=== PATIENT | female | born 1940 | race Two or more races ===

== ENCOUNTER → 2024-10-11 | Outpatient (CLI) | payer MEDICARE, MEDICAID, SELFPAY ==
[2024-10-11 10:11] LABS: Basophils # (Auto) 0.0 Thou/mm3 (0.0-0.2); Basophils % (Auto) 1 % (0-2.5); Eosinophils # (Auto) 0.2 Thou/mm3 (0.0-0.5); Eosinophils % (Auto) 4 % (0-10); Hematocrit 39.2 % (36.0-46.0); Hemoglobin 13.2 g/dL (12.0-16.0); Immature Granulocytes Auto 0.02 Thou/mm3 (0.00-0.00); Lymphocytes # (Auto) 1.5 Thou/mm3 (1.0-4.8); Lymphocytes % (Auto) 30 % (10-50); Mean Corpuscular HGB Conc 33.7 g/dl (31.0-37.0); Mean Corpuscular Hemoglobin 33.7 pg (25.0-35.0); Mean Corpuscular Volume 100 fL (80-100); Monocytes # (Auto) 0.5 Thou/mm3 (0.0-0.8); Monocytes % (Auto) 10 % (0-12); Neutrophils # (Auto) 2.8 Thou/mm3 (1.8-7.7); Neutrophils % (Auto) 56 % (37-80); Nucleated Red Blood Cell # 0.00 Thou/mm3 (0.00-0.00); Nucleated Red Blood Cell % 0 /100 WBC (0); Platelet Count 196 Thou/mm3 (140-440); RDW Standard Deviation 45.1 fL (36.4-46.3); Red Blood Count 3.92 Miln/mm3 (4.00-5.20); White Blood Count 5.1 Thou/mm3 (3.6-11.0)
[2024-10-11 10:19] LABS: Glucose Estimated Average 126 mg/dL (80-131); Hemoglobin A1C 6.0 % Hgb (4.8-6.0)
[2024-10-11 10:31] LABS: Alanine Aminotransferase 16 U/L (10-49); Albumin, Serum 4.3 gm/dL (3.4-4.8); Alkaline Phosphatase 79 U/L (46-116); Anion Gap 9 (7-16); Aspartate Amino Transferase 22 U/L (0-34); BUN/Creatinine Ratio 33 Ratio (12-20); Bilirubin,Direct 0.2 mg/dL (0.0-0.3); Bilirubin,Total 0.7 mg/dL (0.3-1.2); Blood Urea Nitrogen 30 mg/dL (9-23); Calcium 10.7 mg/dL (8.3-10.6); Carbon Dioxide 27.0 mMol/L (20.0-31.0); Cardiac Risk Estimate 3.3 RATIO (3.7-5.6); Chloride 108 mMol/L (98-107); Cholesterol 177 mg/dL (132-200); Creatinine (Component) 0.9 mg/dL (0.6-1.3); Free T4 (Free Thyroxine) 0.83 ng/dL (0.89-1.76); Glucose 98 mg/dL (74-106); HDL Cholesterol 54 mg/dL (40-60); LDL Cholesterol,Calculated 92 mg/dL (0-130); Osmolality,Calculated 293 (275-295); Potassium 4.9 mMol/L (3.4-5.1); Sodium 144 mMol/L (136-145); Thyroid Stimulating Hormone 1.72 uIU/mL (0.55-4.78); Total Protein 6.2 gm/dL (5.7-8.2); Triglycerides 153 mg/dL (30-150); eGFR > 60 See Note
== END | disposition home or self-care (01) ==
LOC: COPL 09:16
PROVIDERS: PCP Internal Medicine; Referring Provider Internal Medicine Cardiovascular Disease; Visit Provider Internal Medicine Cardiovascular Disease
DX: I10 Essential (primary) hypertension (principal); E78.5 Hyperlipidemia, unspecified; E11.9 Type 2 diabetes mellitus without complications
CPT/HCPCS: 36415; 80048; 80061; 80076; 83036; 84439; 84443; 85025

== ENCOUNTER 2025-01-22 07:56 | Emergency (ER) | payer MEDICARE, MEDICAID, SELFPAY ==
[2025-01-22 08:04] VITALS: BP 157/78; PULSE 62; RESP 19; TEMP 36.7; O2SAT 94
--- NOTE | 2025-01-22 08:18 | PD.EDDIZZY ---
ED Dizzyness RME/HPI General Chief Complaint: Weakness Stated Complaint: WEAKNESS Time Seen by Provider: 01/22/25 08:18 Arrival date/time: 01/22/25 07:56 RME / HPI RME / HPI Narrative: See [facility] for Dr. Land's HPI Documentation. Related Data Home Medications ?Medication ?Instructions ?Recorded ?Confirmed MULTIVITS W-FE,OTHER MIN/LUT 1 100 ml PO QDAY ##0 09/28/13 12/09/21 (CENTRUM SILVER ULTRA WOMEN TAB) Tolterodine Tartrate (Tolterodine 4 mg PO QDAY ##0 09/28/13 12/09/21 Tartrate ER) benazepril 40 mg tablet (Lotensin) 40 mg PO QDAY #0 tabs 09/28/13 12/09/21 amlodipine 5 mg tablet 5 mg PO QDAY 12/05/21 12/09/21 betamethasone 0.6 mg/5 mL oral 5 mg PO BID 12/05/21 12/05/21 solution famotidine 40 mg tablet 40 mg PO QDAY 12/05/21 12/09/21 Previous Rx's ?Medication ?Instructions ?Recorded ibuprofen 600 mg tablet 600 mg PO TID PRN pain #30 tabs 05/29/22 valacyclovir 1 gram tablet 1,000 mg PO BID #21 tabs 05/29/22 (Valtrex) cefdinir 300 mg capsule 300 mg PO BID #14 caps 01/22/25 meclizine 25 mg tablet 25 mg PO BID PRN dizziness #20 tabs 01/22/25 ondansetron 4 mg disintegrating 4 mg PO TID PRN nausea and 01/22/25 tablet vomiting 30 days #10 tabs scopolamine base 1 mg over 3 days 1 mg topical .q72 hours PRN 01/22/25 transdermal patch (Transderm-Scop) dizziness or vertigo #4 ea Allergies Allergy/AdvReac Type Severity Reaction Status Date / Time sulfa drugs Allergy Uncoded 01/22/25 08:31 Review of Systems Review of Systems Systems Reviewed: All systems reviewed, normal except as documented Past Medical History Past Medical History CARDIAC: Positive Cardiac Disorders and Hypertension MUSCULOSKELETAL: Positive Musculoskeletal Disorders, Arthritis and Osteoporosis ENT: Positive Cataracts ENDOCRINE: Positive Endocrine Disorders and Diabetes Mellitus Type 2 (borderline no meds) Surgical History SURGICAL: Positive Cardiac Surgery, Pacemaker (1998) and Hysterectomy Social History SMOKING STATUS: Never smoker SUBSTANCE USE: does not use ALCOHOL: Never ED Exam Narrative Physical exam: See [facility] for Dr. Land's HPI Documentation. Course Quality Measures none Orders Category Date Time Status EKG (ED ONLY) *Do not use* NOW Care 01/22/25 08:20 Completed Saline [Insert IV] NOW Care 01/22/25 08:19 Completed Straight [In and Out Catheter] X1 Care 01/22/25 08:[address] head/brain wo con Stat Exams 01/22/25 08:20 Completed EKG (ED Only) Stat Exams 01/22/25 08:20 Draft XR chest 1V portable Stat Exams 01/22/25 08:20 Completed BNP [B-Type Natriuretic Peptide] Stat Lab 01/22/25 09:30 Completed Bilirubin,Direct Stat Lab 01/22/25 09:30 Completed CBC Stat Lab 01/22/25 09:30 Completed CMP [Comprehensive Metabolic Panel] Stat Lab 01/22/25 09:30 Completed Magnesium Stat Lab 01/22/25 09:30 Completed TSH [Thyroid Stimulating Hormone] Stat Lab 01/22/25 09:30 Completed Troponin I Stat Lab 01/22/25 09:30 Completed UA, C/S IF [Urinalysis, C/S if Indicated] Stat Lab 01/22/25 08:44 Completed Urine Culture Stat Lab 01/22/25 08:44 Received Meclizine HCl [Antivert] Med 01/22/25 08:19 Discontinued 25 mg PO X1 ONE Ondansetron Inj [Zofran Inj] Med 01/22/25 08:19 Discontinued 4 mg IVP X1 ONE Scopolamine [Transderm-Scop Patch] Med 01/22/25 08:19 Discontinued 1 mg TOP X1 ONE Sodium Chloride 0.9% 1000 ml [Ns] 1,000 ml Med 01/22/25 08:19 Discontinued IV 999 mls/hr cefTRIAXone/D5w 1gm IV premix [Rocephin/D5w 1gm IV Med 01/22/25 09:50 Discontinued premix] 1 gm in 50 ml IV X1 Vital Signs Vital signs: Vital Signs Temperature 98.1 F 01/22/25 08:04 Pulse Rate 62 01/22/25 08:04 Respiratory Rate 19 01/22/25 08:04 Blood Pressure 157/78 H 01/22/25 08:04 Pulse Oximetry (%) 94 L 01/22/25 08:04 Oxygen Delivery Method Room Air 01/22/25 08:04 Dizziness MDM Narrative MDM Narrative:: This section includes all my notes and documentations, including HPI, PE, and ED course. Rolando Land MD HPI: 84-year-old female with about 48-hour history of severe dizziness and vomiting. She describes spinning sensation. No speech or visual impairment. No loss of power in the arms or legs. No numbness or tingling. No chest pain. No other complaints. ROS: All negative except as documented in HPI. Physical Exam: General: Alert and oriented. Appearance of severe malaise noted. Eyes: Conjunctivae and lids clear. EOMI. PERRL. ENT: No nasal congestion. Pharynx normal. Tympanic membrane normal bilaterally. Neck: Supple. No carotid bruit. No JVD. Heart: RRR. Lungs: No respiratory distress. Good air movement. No rhonchi, wheezing, rales. Abdomen: Soft and nontender. Normal bowel sounds. No distension. No rebound or guarding. Back: No CVA tenderness. Legs: No clubbing, cyanosis, edema. Skin: Warm and dry. Neuro: Alert and oriented X 3. Cranial Nerves II-XII grossly intact. No peripheral motor deficits. I reviewed EMS notes. I reviewed all diagnostic test results: My interpretation of the EKG: Paced rhythm (61 bpm). My interpretation of the chest x-ray is NAD. My review of the head CT report is NAD. Blood tests unremarkable. UA showed leukocyte esterase, 47 WBC, and 2+ bacteria. At this point, diagnoses include: Vertigo UTI Treatment here included: IVF Ceftriaxone 1 g IV Meclizine 25 mg PO Ondansetron 4 mg IV Scopolamine patch Significant improvement noted. Recommended a trial of outpatient treatment. Based on my best medical judgment, made decision no further evaluation or treatment indicated at this time. Patient and daughter understands and agrees to the discharge instructions customized and printed, see below. Discharge instructions from Dr. Land: ? After extensive evaluation, there is no life-threatening condition.? Such as stroke or brain tumor or heart attack. -- Your severe symptoms are due to vertigo.? This is an inner ear problem that makes you feel like you are drunk or seasick.? See attached handout. -- Use scopolamine patch and/or meclizine for your severe symptoms. -- Take cefdinir for urine infection. -- And Zofran for nausea/vomiting.? And increase oral fluid to prevent dehydration.? Maintain clear urine.? If dark or yellow, increase oral fluid. -- And do everything very slowly.? Including moving your head.? And when you sit up or stand up, wait a minute before you progress.? -- See your private doctor on 01/24/2025 for recheck. Ask to review all test results and official radiology reports, to make sure you receive all necessary follow-ups and monitoring, including final urine culture results from today. -- Seek immediate medical care with worsening or with any concerns. Instrucciones de farhana del Dr. Land: ? Tras refugio evaluaci?n exhaustiva, no se detect? ninguna afecci?n que ponga en peligro la marcela. Por ejemplo, accidente cerebrovascular, tumor cerebral o infarto de miocardio. ? Tammy s?ntomas graves se deben a v?rtigo. Se trata de un problema del o?do interno que le hace sentir fabiola si estuviera ebrio o mareado. Consulte el folleto adjunto. ? Use parches de escopolamina y/o meclizina para aliviar tammy s?ntomas graves. ? [place] cefdinir para la infecci?n urinaria. ? Y Zofran para las n?useas y los v?mitos. Aumente la ingesta de l?quidos para prevenir la deshidrataci?n. Mantenga la orina mona. Si est? oscura o amarilla, aumente la ingesta de l?quidos. ? Realice todas las actividades muy lentamente. Incluso lumber mover la deepak. Al sentarse o levantarse, espere un minuto antes de continuar. ? Consulte con [place] m?dico de cabecera el 2024 para refugio revisi?n. Solicite revisar todos los resultados de las pruebas e informes radiol?gicos oficiales para asegurarse de recibir todo el seguimiento y la monitorizaci?n necesarios, incluidos los resultados finales del cultivo de orina de hoy. ? Busque atenci?n m?dica inmediata si los s?ntomas empeoran o si tiene alguna inquietud. Rolando Land MD Patient data External records reviewed:: [facility] previous records and EMS form Clinical information provided by:: patient and EMS Social determinants that could affect healthcare access:: none Patient has the following chronic illnesses:: Hypertension, DM 2, arthritis, osteoporosis, pacemaker (1998),and a hysterectomy. How is presenting disease/condition affected by chronic disease/condition?: exacerbated by Evaluation data The following diagnostics were reviewed and interpreted by me:: lab results, radiology exam(s) and EKG tracing(s) (My interpretation of the EKG: Paced rhythm (61 bpm). Rolando Land MD) Lab and/or radiology exams considered but not ordered:: none Interpretation Summary: I reviewed all diagnostic test results: My interpretation of the EKG: Paced rhythm (61 bpm). My interpretation of the chest x-ray is NAD. My review of the head CT report is NAD. Blood tests unremarkable. UA showed leukocyte esterase, 47 WBC, and 2+ bacteria. Medications / Prescriptions Medications or Prescriptions considered but not ordered:: none Medication administrations:: Medication Administration History Discontinued Medications Sodium Chloride (Ns) 1,000 mls @ 999 mls/hr IV .Q1H1M ONE Stop: 01/22/25 09:19 Last Infusion: 01/22/25 10:34 Dose: Infused Documented By: Admin: 01/22/25 09:33 Dose: 999 mls/hr Documented By: LF Ceftriaxone Sodium/Dextrose (Rocephin/D5w 1gm Iv Premix) 1 gm in 50 mls @ 100 mls/hr IV X1 ONE Stop: 01/22/25 10:19 Last Admin: 01/22/25 10:50 Dose: 100 mls/hr Documented By: ED Meclizine HCl (Meclizine Hcl 25 Mg Tablet) 25 mg PO X1 ONE Stop: 01/22/25 08:20 Last Admin: 01/22/25 09:35 Dose: 25 mg Documented By: LF Ondansetron HCl (Ondansetron Inj 2 Mg/Ml Inj 2 Ml) 4 mg IVP X1 ONE; Protocol Stop: 01/22/25 08:20 Last Admin: 01/22/25 09:33 Dose: 4 mg Documented By: LF Scopolamine (Scopolamine 1 Mg Tdsy) 1 mg TOP X1 ONE Stop: 01/22/25 08:20 Last Admin: 01/22/25 09:34 Dose: 1 mg Documented By: ALEX Treatment here included: IVF Ceftriaxone 1 g IV Meclizine 25 mg PO Ondansetron 4 mg IV Scopolamine patch Consultations Consultation(s) initiated? (list below): No Diagnosis Dizziness Differential Diagnosis: adverse reaction to drug, benign paroxysmal positional vertigo, orthostatic hypotension, vertebral basilar insufficiency, cerebrovascular accident, acute vestibular neuronitis, transient cerebral ischemia and other Most likely diagnosis given after review of the tests above:: Vertigo UTI Admission Indicated Admission indicated?: not indicated Explain why admission is indicated or not indicated:: With significant improvement and no condition needing emergent intervention, there was no indication for admission. Admission Request Was there a request for admission?: No Disposition Plan Disposition Plan: Discharge Discharge Attestation Discharge Attestation: The patient and all family members were given an opportunity to ask questions and understood the discharge instructions. Discharge instructions specifically effects, indications for sooner follow up or return to the emergency department, and the expected course of current diagnosis. Patient condition: Stable Discharge Plan Plan Patient Disposition: HOME (Self Care) Prescriptions/Referrals Prescriptions/Med Rec: New meclizine 25 mg tablet 25 mg PO BID PRN (Reason: dizziness) Qty: 20 0RF scopolamine base [Transderm-Scop] 1 mg over 3 days patch 3 day 1 mg topical .q72 hours PRN (Reason: dizziness or vertigo) Qty: 4 0RF ondansetron 4 mg tablet,disintegrating 4 mg PO TID PRN (Reason: nausea and vomiting) 30 Days Qty: 10 0RF cefdinir 300 mg capsule 300 mg PO BID Qty: 14 0RF No Action benazepril [Lotensin] 40 MG tablet 40 mg PO QDAY Qty: 0 MULTIVITS W-FE,OTHER MIN/LUT (CENTRUM SILVER ULTRA WOMEN TAB) 1 EACH tablet 1 100 ml PO QDAY Qty: 0 Tolterodine Tartrate (Tolterodine Tartrate ER) 4 MG CAP.ER.24H 4 mg PO QDAY Qty: 0 valacyclovir [Valtrex] 1 gram tablet 1,000 mg PO BID Qty: 21 0RF ibuprofen 600 mg tablet 600 mg PO TID PRN (Reason: pain) Qty: 30 0RF betamethasone 0.6 mg/5 mL Solution 5 mg PO BID famotidine 40 mg Tablet 40 mg PO QDAY amlodipine 5 mg Tablet 5 mg PO QDAY Referrals: Jerome Mendoza MD [Primary Care Provider, Internal Medicine] - In 1 week Problem List Clinical Impression: Vertigo, UTI (urinary tract infection) Patient/Caregiver Discharge Instructions Discharge Activity: activity as tolerated Education Materials: ED CYSTITIS Female Adult, ED Vertigo, Unspecified Additional Instructions: Discharge instructions from Dr. Land: ? After extensive evaluation, there is no life-threatening condition.? Such as stroke or brain tumor or heart attack. -- Your severe symptoms are due to vertigo.? This is an inner ear problem that makes you feel like you are drunk or seasick.? See attached handout. -- Use scopolamine patch and/or meclizine for your severe symptoms. -- Take cefdinir for urine infection. -- And Zofran for nausea/vomiting.? And increase oral fluid to prevent dehydration.? Maintain clear urine.? If dark or yellow, increase oral fluid. -- And do everything very slowly.? Including moving your head.? And when you sit up or stand up, wait a minute before you progress.? -- See your private doctor on 01/24/2025 for recheck. Ask to review all test results and official radiology reports, to make sure you receive all necessary follow-ups and monitoring, including final urine culture results from today. -- Seek immediate medical care with worsening or with any concerns. Instrucciones de farhana del Dr. Land: ? Tras refugio evaluaci?n exhaustiva, no se detect? ninguna afecci?n que ponga en peligro la marcela. Por ejemplo, accidente cerebrovascular, tumor cerebral o infarto de miocardio. ? Tammy s?ntomas graves se deben a v?rtigo. Se trata de un problema del o?do interno que le hace sentir fabiola si estuviera ebrio o mareado. Consulte el folleto adjunto. ? Use parches de escopolamina y/o meclizina para aliviar tammy s?ntomas graves. ? [place] cefdinir para la infecci?n urinaria. ? Y Zofran para las n?useas y los v?mitos. Aumente la ingesta de l?quidos para prevenir la deshidrataci?n. Mantenga la orina mona. Si est? oscura o amarilla, aumente la ingesta de l?quidos. ? Realice todas las actividades muy lentamente. Incluso lumber mover la deepak. Al sentarse o levantarse, espere un minuto antes de continuar. ? Consulte con [place] m?dico de cabecera el diciembre 2024 para refugio revisi?n. Solicite revisar todos los resultados de las pruebas e informes radiol?gicos oficiales para asegurarse de recibir todo el seguimiento y la monitorizaci?n necesarios, incluidos los resultados finales del cultivo de orina de hoy. ? Busque atenci?n m?dica inmediata si los s?ntomas empeoran o si tiene alguna inquietud. Print Language: Thai Stand Alone Forms: Poppy Award Info., Patient Portal Info Letter
[2025-01-22 08:19] VITALS: PULSE 76; RESP 20; O2SAT 98
--- NOTE | 2025-01-22 08:20 | XR_ITS ---
Examination: CT brain head without contrast. 2-D sagittal coronal reconstructions Date and time of exam: January 22, 2025, 0901 hours INDICATIONS: Dizziness weakness beginning 4 days ago CTDI: vol (mGy): 51.8 DLP: (mGycm): 1016 Technique: Multiple CT axial sections of the brain have been obtained, 5 mm slice thickness. Contrast has not been administered. 2-D sagittal, coronal reconstructions have been obtained Low dose protocols were performed. One or more of the following dose reduction techniques were used; automated exposure control, adjustment of the mA and/or KV according to patient size, use of iterative reconstruction technique. Findings: No significant ventricular enlargement. Intra-axial or extra-axial hemorrhage density is not seen. No mass effect or midline shift Basal cisterns are not remarkable. Fourth ventricle is midline. Cranial vault intact. Impression: Negative for acute hemorrhage, mass effect or midline shift Advise clinical correlation and follow-up accordingly
--- NOTE | 2025-01-22 08:20 | EKG_ITS ---
[facility] Test Date: 2025-01-22 Pat Name: DARLIN AUGUSTE Department: Room: - Gender: Female [employer]st: : 1940 Requested By: Rolando Luna Order Number: [id number] Reading MD: Rolando Luna Measurements Intervals [place] Rate: 61 P: 92 MT: 199 QRS: -14 QRSD: 91 T: 29 QT: 377 QTc: 380 Interpretive Statements ELECTRONIC ATRIAL PACEMAKER LOW QRS VOLTAGE IN PRECORDIAL LEADS [QRS DEFLECTION < 1.0 mV IN CHEST LEADS] ABNORMAL RHYTHM ECG Compared to ECG 05/29/2022 08:34:24 No significant changes /store/S0/[id number].pdf
--- NOTE | 2025-01-22 08:20 | XR_ITS ---
EXAMINATION: AP chest single view TECHNIQUE: AP portable upright chest single view Date and time: January 22, 2025, 0822 hours, comparison 10/30/2021 INDICATIONS: Shortness of breath today FINDINGS: No significant cardiac enlargement Atelectasis versus early pneumonia right base Cardiac leads satisfactory position. No pulmonary edema. IMPRESSION: Atelectasis versus early pneumonia right base, clinical correlation advised
[2025-01-22 09:22] LABS: Collection Type, Urine Clean Catch
[2025-01-22] MEDS: ONDANSETRON INJ 2 MG/ML INJ 2 ML 4 MG IVP (09:33)
[2025-01-22] MEDS: SODIUM CHLORIDE 0.9% 1000 ML 1,000 ML 999 ML IV (09:33)
[2025-01-22] MEDS: SCOPOLAMINE 1 MG TDSY TOP (09:34)
[2025-01-22] MEDS: MECLIZINE HCL 25 MG TABLET PO (09:35)
[2025-01-22 09:40] LABS: Basophils # (Auto) 0.0 Thou/mm3 (0.0-0.2); Basophils % (Auto) 0 % (0-2.5); Eosinophils # (Auto) 0.0 Thou/mm3 (0.0-0.5); Eosinophils % (Auto) 1 % (0-10); Hematocrit 40.9 % (36.0-46.0); Hemoglobin 13.7 g/dL (12.0-16.0); Immature Granulocytes Auto 0.02 Thou/mm3 (0.00-0.00); Lymphocytes # (Auto) 1.0 Thou/mm3 (1.0-4.8); Lymphocytes % (Auto) 15 % (10-50); Mean Corpuscular HGB Conc 33.5 g/dl (31.0-37.0); Mean Corpuscular Hemoglobin 33.0 pg (25.0-35.0); Mean Corpuscular Volume 99 fL (80-100); Monocytes # (Auto) 0.4 Thou/mm3 (0.0-0.8); Monocytes % (Auto) 5 % (0-12); Neutrophils # (Auto) 5.5 Thou/mm3 (1.8-7.7); Neutrophils % (Auto) 79 % (37-80); Nucleated Red Blood Cell # 0.00 Thou/mm3 (0.00-0.00); Nucleated Red Blood Cell % 0 /100 WBC (0); Platelet Count 251 Thou/mm3 (140-440); RDW Standard Deviation 45.4 fL (36.4-46.3); Red Blood Count 4.15 Miln/mm3 (4.00-5.20); White Blood Count 7.0 Thou/mm3 (3.6-11.0)
[2025-01-22 09:41] LABS: Bacteria,Urine 2+; Bilirubin,Urine Negative (Negative); Blood,Urine Negative (Negative); Clarity,Urine Turbid (Clear/Hazy); Color,Urine Lt-Yellow (Lt Yel-Yel); Glucose, Urine Negative (Negative); Ketones,Urine Negative (Negative); Leukocyte Esterase,Urine Positive (Negative); Nitrite,Urine Positive (Negative); PH,Urine 6.5 (5.0-7.0); Protein,Urine Negative (Neg - Trace); RBC,Urine 3 /hpf (0-3); Specific Gravity,Urine 1.011 (1.001-1.035); Squamous Epithelial Cell,Urine 1 /hpf (0-5); Urobilinogen,Urine Negative mg/dL (0.0-1.0); WBC,Urine 47 /hpf (0-5)
[2025-01-22 09:46] LABS: Culture Indicated,Urine Yes
[2025-01-22 10:02] LABS: B-Type Natriuretic Peptide 34 pg/mL (0-100)
[2025-01-22 10:27] LABS: Alanine Aminotransferase 15 U/L (10-49); Albumin, Serum 4.2 gm/dL (3.4-4.8); Albumin/Globulin Ratio 1.8 (1.2-2.2); Alkaline Phosphatase 69 U/L (46-116); Anion Gap 11 (7-16); Aspartate Amino Transferase 24 U/L (0-34); BUN/Creatinine Ratio 18 Ratio (12-20); Bilirubin,Direct 0.2 mg/dL (0.0-0.3); Bilirubin,Total 1.0 mg/dL (0.3-1.2); Blood Urea Nitrogen 16 mg/dL (9-23); Calcium 9.7 mg/dL (8.3-10.6); Calcium (Corrected) 9.7 mg/dL (8.5-10.1); Carbon Dioxide 29.2 mMol/L (20.0-31.0); Chloride 105 mMol/L (98-107); Creatinine (Component) 0.9 mg/dL (0.6-1.3); Globulin 2.3 gm/dL (2.3-3.5); Glucose 112 mg/dL (74-106); Magnesium 1.8 mg/dL (1.6-2.6); Osmolality,Calculated 290 (275-295); Potassium 4.4 mMol/L (3.4-5.1); Sodium 145 mMol/L (136-145); Thyroid Stimulating Hormone 1.22 uIU/mL (0.55-4.78); Total Protein 6.5 gm/dL (5.7-8.2); Troponin I < 0.020 ng/mL (0.0-0.045); eGFR > 60 See Note
[2025-01-22 10:42] VITALS: BP 169/70; PULSE 60; RESP 18; TEMP 36.7; O2SAT 95
[2025-01-22] MEDS: cefTRIAXone/D5w 1gm IV premix 1 GM/50 ML BAG IV (10:50)
[2025-01-22 12:18] VITALS: BP 161/78; PULSE 62; RESP 18; TEMP 36.6; O2SAT 94
== END 2025-01-22 12:22 | disposition home or self-care (01) ==
PROVIDERS: Emergency Provider Emergency Medicine; PCP Internal Medicine
DX: R42 Dizziness and giddiness (principal); N39.0 Urinary tract infection, site not specified; R06.02 Shortness of breath; R53.1 Weakness; R94.31 Abnormal electrocardiogram [ECG] [EKG]; I10 Essential (primary) hypertension; Z95.0 Presence of cardiac pacemaker
CPT/HCPCS: 36415; 70450; 71045; 80053; 81001; 82248; 83735; 83880; 84443; 84484; 85025; 87077; 87086; 87186; 93005; 96361; 96374; 99284; J0696; J2405; J7030; A9270

== ENCOUNTER → 2025-02-15 | Outpatient (CLI) | payer MEDICARE, MEDICAID, SELFPAY ==
[2025-02-15 09:18] LABS: Basophils # (Auto) 0.0 Thou/mm3 (0.0-0.2); Basophils % (Auto) 1 % (0-2.5); Eosinophils # (Auto) 0.2 Thou/mm3 (0.0-0.5); Eosinophils % (Auto) 3 % (0-10); Hematocrit 39.2 % (36.0-46.0); Hemoglobin 13.8 g/dL (12.0-16.0); Immature Granulocytes Auto 0.02 Thou/mm3 (0.00-0.00); Lymphocytes # (Auto) 1.8 Thou/mm3 (1.0-4.8); Lymphocytes % (Auto) 27 % (10-50); Mean Corpuscular HGB Conc 35.2 g/dl (31.0-37.0); Mean Corpuscular Hemoglobin 33.7 pg (25.0-35.0); Mean Corpuscular Volume 96 fL (80-100); Monocytes # (Auto) 0.6 Thou/mm3 (0.0-0.8); Monocytes % (Auto) 9 % (0-12); Neutrophils # (Auto) 4.0 Thou/mm3 (1.8-7.7); Neutrophils % (Auto) 61 % (37-80); Nucleated Red Blood Cell # 0.00 Thou/mm3 (0.00-0.00); Nucleated Red Blood Cell % 0 /100 WBC (0); Platelet Count 231 Thou/mm3 (140-440); RDW Standard Deviation 43.1 fL (36.4-46.3); Red Blood Count 4.10 Miln/mm3 (4.00-5.20); White Blood Count 6.6 Thou/mm3 (3.6-11.0)
[2025-02-15 09:35] LABS: Vitamin D 25 Hydroxy Total 65.4 ng/mL (7.3-40.2)
[2025-02-15 09:36] LABS: Alanine Aminotransferase 13 U/L (10-49); Albumin, Serum 4.4 gm/dL (3.4-4.8); Albumin/Globulin Ratio 2.2 (1.2-2.2); Alkaline Phosphatase 72 U/L (46-116); Anion Gap 8 (7-16); Aspartate Amino Transferase 21 U/L (0-34); BUN/Creatinine Ratio 13 Ratio (12-20); Bilirubin,Total 0.9 mg/dL (0.3-1.2); Blood Urea Nitrogen 13 mg/dL (9-23); Calcium 9.6 mg/dL (8.3-10.6); Calcium (Corrected) 9.6 mg/dL (8.5-10.1); Carbon Dioxide 26.8 mMol/L (20.0-31.0); Cardiac Risk Estimate 2.9 RATIO (3.7-5.6); Chloride 103 mMol/L (98-107); Cholesterol 148 mg/dL (132-200); Creatinine (Component) 1.0 mg/dL (0.6-1.3); Free T4 (Free Thyroxine) 1.01 ng/dL (0.89-1.76); Globulin 2.0 gm/dL (2.3-3.5); Glucose 104 mg/dL (74-106); Glucose Estimated Average 114 mg/dL (80-131); HDL Cholesterol 51 mg/dL (40-60); Hemoglobin A1C 5.6 % Hgb (4.8-6.0); LDL Cholesterol,Calculated 74 mg/dL (0-130); Osmolality,Calculated 275 (275-295); Potassium 4.6 mMol/L (3.4-5.1); Sodium 138 mMol/L (136-145); Thyroid Stimulating Hormone 3.19 uIU/mL (0.55-4.78); Total Protein 6.4 gm/dL (5.7-8.2); Triglycerides 114 mg/dL (30-150); eGFR 56 See Note
== END | disposition home or self-care (01) ==
LOC: COPL 08:02
PROVIDERS: PCP Internal Medicine; Referring Provider Internal Medicine; Visit Provider Internal Medicine
DX: I11.0 Hypertensive heart disease with heart failure (principal); E11.9 Type 2 diabetes mellitus without complications; E55.9 Vitamin D deficiency, unspecified; E78.2 Mixed hyperlipidemia; E03.9 Hypothyroidism, unspecified
CPT/HCPCS: 36415; 80053; 80061; 82306; 83036; 84439; 84443; 85025